=== PATIENT | male | born 1970 | race Caucasian/White ===

== ENCOUNTER 2022-04-07 11:46 | Emergency (ER) | payer OTHER, SELFPAY ==
[2022-04-07 12:23] VITALS: BP 145/82; PULSE 77; RESP 16; TEMP 37.1; O2SAT 96; BMI 26.1
--- NOTE | 2022-04-07 14:28 | CRLHL7_ITS ---
For Patients: As a result of the Cures Act, medical imaging exams and procedure reports are released immediately into your electronic medical record. You may view this report before your referring provider. If you have questions, please contact your health care provider. Indication: Fall. Technique: Sacrum/coccyx 3 views. Comparison: None. Findings: Bones: Subtle anterior cortical irregularity of the C1 segment of the coccyx. No other evidence for acute fracture. Alignment is normal. 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 Soft tissues: Unremarkable. Impression: Subtle anterior cortical irregularity of the C1 segment of the coccyx, could represent a nondisplaced fracture. Dictated by Ranjeet Aiken MD @ 04/07/2022 3:12:21 PM (Electronically Signed)
--- NOTE | 2022-04-07 14:29 | ED.FALL ---
HPI - Fall General Chief Complaint: Fall/Minor Trauma Stated Complaint: Falls, hurt tailbone Time Seen by Provider: 04/07/22 14:18 History of Present Illness HPI Narrative: This 52-year-old male comes in reporting pain in his tailbone and sacrum area. He states that he has fallen twice over the last couple days landing in this same area. The 1st time he states he got his feet caught up in a blanket and the 2nd fall occurred when he slipped on ice. He does not report any other injury. He has been able to get up and ambulate but has significant pain in this area. He does not report any pain radiating down either leg. He did not hit his head or have loss of consciousness. Related Data Home Medications Medication Instructions Recorded Confirmed metformin 1,000 mg tablet 1,000 mg PO DAILY 04/07/22 04/07/22 omeprazole 20 mg capsule,delayed 20 mg PO DAILY 04/07/22 04/07/22 release Previous Rx's Medication Instructions Recorded hydrocodone 5 mg-acetaminophen 325 1 tab PO Q4-6H PRN pain #24 tabs 04/07/22 mg tablet Allergies Allergy/AdvReac Type Severity Reaction Status Date / Time clarithromycin [From Biaxin] Allergy Verified 04/07/22 12:28 Sulfa (Sulfonamide Allergy Verified 04/07/22 12:28 Antibiotics) Review of Systems Status of ROS: Reports: 10 or more systems reviewed and unremarkable except as noted in History and below Narrative: Constitutional: No fevers, no weight gain or loss. Eyes: No discharge. No vision changes. HENT: No congestion, no sore throat, no ear pain. Cardiovascular: No chest pain, no palpitations. Respiratory: No shortness of breath, no wheezes, no cough. Gastrointestinal: No abdominal pain, no vomiting, no diarrhea. Genitourinary: No dysuria, no hematuria. Musculoskeletal: Normal range of motion. Pain in sacrum and coccyx area. Skin: No rashes, no pruritis. Neurological: No dizziness, weakness, sensory change, speech change. Endo/Heme/Allergies: No bruising or bleeding. No polydipsia. Pysch: no suicidality, no anxiety, no insomnia. All other systems reviewed and are negative. Exam Narrative: Exam Narrative: Constitutional: Well-developed, well-nourished, no acute distress. HEENT: Normocephalic, atraumatic. Neck: Normal range of motion. Nontender. Supple. Heart: Regular. No murmurs. Normal rate. Intact distal pulses. Lungs: Clear to auscultation. No chest discomfort. No wheezes, rhonchi, or rales. Abdomen: Normal bowel sounds. Nontender. No rebound tenderness. Genitalia: Deferred. Back: No midline tenderness above the belt line. Tenderness in the sacrum and coccyx area. Normal range of motion. Extremities: Normal range of motion. Skin: Intact. No rash. Warm. No erythema or pallor. Neurologic: No altered sensation. No weakness. Alert and oriented. Psychiatric: No suicidality. No anxiety or depression. No insomnia. Nursing notes and vitals signs are reviewed. Const: Vital Signs, click to edit/add: Vital Signs - 24 hr 04/07/22 12:23 Temperature 98.8 F Pulse Rate [Right Pulse Oximeter] 77 Respiratory Rate 16 Blood Pressure [Le ft Forearm] 145/82 H Pulse Oximetry 96 Oxygen Delivery Me thod Room Air Course Vital Signs Vital signs: Initial Vital Signs Temperature 98.8 F 04/07/22 12:23 Temperature Source Temporal Artery Scan 04/07/22 12:23 Pulse Rate 77 04/07/22 12:23 Pulse Rhythm 04/07/22 12:23 Pulse Strength 3+ Normal 04/07/22 12:23 Respiratory Rate 16 04/07/22 12:23 Blood Pressure 145/82 H 04/07/22 12:23 Blood Pressure Mean 103 04/07/22 12:23 Blood Pressure Position Standing 04/07/22 12:23 Pulse Oximetry 96 04/07/22 12:23 Oxygen Delivery Method 04/07/22 12:23 Vital Signs Temperature 98.8 F 04/07/22 12:23 Pulse Rate 77 04/07/22 12:23 Respiratory Rate 16 04/07/22 12:23 Blood Pressure 145/82 H 04/07/22 12:23 Pulse Oximetry 96 04/07/22 12:23 Oxygen Delivery Method 04/07/22 12:23 Temperature 98.8 F 04/07/22 12:23 Pulse Rate 77 04/07/22 12:23 Respiratory Rate 16 04/07/22 12:23 Blood Pressure 145/82 H 04/07/22 12:23 Pulse Oximetry 96 04/07/22 12:23 Oxygen Delivery Method 04/07/22 12:23 MDM - Fall MDM Narrative Medical decision making narrative: This 52-year-old male comes in with an injury to his tailbone. X-ray images of the sacrum and coccyx do show a subtle irregularity that may indicate a fracture of the C1 component of the coccyx. This patient is in discomfort but is neurologically stable and able to ambulate. He is okay to be discharged home. I did provide a prescription for some tablets of [place]. Imaging Data XR Sacrum/Coccyx: Radiologist's impression: Subtle anterior cortical irregularity of the C1 segment of the coccyx, could represent a nondisplaced fracture. Discharge Plan Discharge Clinical Impression: Closed fracture of coccyx Patient Disposition: Home, Self-Care Condition: Stable Additional Instructions: Take medication as needed and indicated. Follow up with MD or return if worsening. Prescriptions: New hydrocodone-acetaminophen 5-325 mg tablet 1 tab PO Q4-6H PRN (Reason: pain) Qty: 24 0RF No Action metformin 1,000 mg tablet 1,000 mg PO DAILY omeprazole 20 mg capsule,delayed release(DR/EC) 20 mg PO DAILY Follow Up/Referrals: Provider,Not a Local [Primary Care Provider] - Stand Alone Forms: [facility] Info Instructions
[2022-04-07 15:25] VITALS: BP 129/79; PULSE 78; O2SAT 96
== END 2022-04-07 15:33 | disposition home or self-care (01) ==
PROVIDERS: Emergency Provider Emergency Medicine Emergency Medical Services
DX: S32.2XXA Fracture of coccyx, initial encounter for closed fracture (principal); W19.XXXA Unspecified fall, initial encounter
CPT/HCPCS: 72220; 99283; 99284

== ENCOUNTER 2022-04-16 09:26 | Outpatient (CLI) | payer OTHER, SELFPAY ==
[2022-04-16 14:21] LABS: Chloride* 105 mmol/L (96-114); Potassium* 5.4 mmol/L (3.6-5.1); Sodium* 140 mmol/L (135-149)
[2022-04-16 14:24] LABS: Blood Urea Nitrogen* 18 mg/dL (7-30); Carbon Dioxide* 29 mmol/L (20-32); Cholesterol* 202 mg/dL (90-199); Creatinine* 0.7 mg/dL (0.5-1.5); Estimated Glomerular Filt Rate 110 ml/min; Glucose* 239 mg/dL (60-115)
[2022-04-16 14:25] LABS: Calcium* 10.1 mg/dL (8.4-10.6); HDL Cholesterol* 47 mg/dL (>=40); LDL Cholesterol Calculated 108 mg/dL (<100); Triglycerides* 235 mg/dL (40-149)
[2022-04-16 14:53] LABS: PSA Screen* 0.78 ng/mL (0.10-4.00)
== END 2022-04-16 09:27 | disposition home or self-care (01) ==
PROVIDERS: Visit Provider Family Medicine
DX: Z00.00 Encounter for general adult medical examination without abnormal findings (principal); E11.9 Type 2 diabetes mellitus without complications; Z12.5 Encounter for screening for malignant neoplasm of prostate; Z13.6 Encounter for screening for cardiovascular disorders
CPT/HCPCS: 80048; 80061; 84153

== ENCOUNTER 2022-07-09 11:29 | Outpatient (CLI) | payer OTHER, SELFPAY ==
[2022-07-09 17:53] LABS: SARS PCR* Negative SARS-CoV-2 (Negative)
[2022-07-10 13:16] LABS: Strep A DNA Probe* NOT DETECTED (Not Detectd)
== END 2022-07-09 11:30 | disposition home or self-care (01) ==
PROVIDERS: Visit Provider Family Medicine
DX: Z20.822 Contact with and (suspected) exposure to COVID-19 (principal); J02.9 Acute pharyngitis, unspecified
CPT/HCPCS: 87635; 87651